=== PATIENT | female | born 1960 | race Caucasian/White ===

== ENCOUNTER → 2019-04-24 | Outpatient (REF) | payer BC | LOC: M LAB REF 12:52 | PROVIDERS: ATTEND Family Medicine | DX: Z12.4 Encounter for screening for malignant neoplasm of cervix (principal) | CPT/HCPCS: 87624; G0123 ==

== ENCOUNTER → 2025-03-02 | Outpatient (CLI) | payer BC ==
[~2025-03-02] MED LIST: ANAS1TAB2 PO; CALC600T27 PO; DULA3PEN; FARX1TAB3; LANTINJ4; LIDO1PAD; LISI5TAB11; METF-415; ONDA-83 PO; ROSU10TA61
== END ==
LOC: M ONCR 07:47
PROVIDERS: ATTEND General Practice
DX: D05.11 Intraductal carcinoma in situ of right breast (principal); Z17.0 Estrogen receptor positive status [ER+]; Z17.21 Progesterone receptor positive status; R11.0 Nausea; Z98.890 Other specified postprocedural states; Z79.4 Long term (current) use of insulin; Z79.84 Long term (current) use of oral hypoglycemic drugs; Z79.899 Other long term (current) drug therapy; Z79.811 Long term (current) use of aromatase inhibitors; Z90.49 Acquired absence of other specified parts of digestive tract; Z80.3 Family history of malignant neoplasm of breast; Z87.891 Personal history of nicotine dependence

== ENCOUNTER 2025-03-08 07:57 | Outpatient (RCR) | payer BC ==
[~2025-03-08 07:57] MED LIST changes: -ROSU10TA61; +ROSU10TA90
[2025-03-19] MEDS ORDERED: OXYC-1 PO (18:49)
== END 2025-03-19 ==
LOC: M ONCR 07:57
PROVIDERS: ATTEND General Practice
DX: Z51.0 Encounter for antineoplastic radiation therapy (principal); D05.11 Intraductal carcinoma in situ of right breast

== ENCOUNTER 2025-03-19 11:39 | Emergency (ER) | payer BC ==
[~2025-03-19] VITALS: Ht 157.5 cm; Wt 61.4 kg
[2025-03-19 12:35] LABS: BASO # 0.0 10^3/uL (0.0-0.2); BASO % 0.2 % (0.0-1.0); EOS # 0.0 10^3/uL (0.0-0.5); EOS % 0.2 % (0.0-3.0); LYMPH # 0.3 10^3/uL (1.5-5.0); LYMPH % 5.5 % (24.0-44.0); MONO # 0.2 10^3/uL (0.0-0.8); MONO % 3.6 % (2.0-8.0); NEUTROPHILS # 5.6 10^3/uL (1.5-8.5); NEUTROPHILS % 90.2 % (36.0-66.0); PLATELET COUNT, AUTOMATED 169 10^3/uL (150-450)
[2025-03-19 12:55] LABS: INR 0.9
[2025-03-19] MEDS: ACETAMINOPHEN 325 MG TAB PO ONE (12:56)
[2025-03-19] MEDS: NS (Normal Saline) 0.9% 1,000 ML IV ONE (12:56)
[2025-03-19 13:04] LABS: CK-MB VALUE MASS < 1.0 NG/ML (<3.6)
[2025-03-19 13:06] LABS: CPK CREATINE PHOSPHOKINASE 49 U/L (34-145)
[2025-03-19 13:08] LABS: ALT/SGPT 17 U/L (7.0-40); AST/SGOT 19 U/L (<34); CALCIUM LEVEL 9.1 MG/DL (8.3-10.6); CARBON DIOXIDE LEVEL 24 MMOL/L (20-31); CHLORIDE LEVEL 106 MMOL/L (98-107); CREATININE FOR GFR 0.60 MG/DL (0.55-1.30); GLOMERULAR FILTRATION RATE > 90.0 (>45); MAGNESIUM LEVEL 1.6 MG/DL (1.8-2.4); POTASSIUM SERUM 3.9 MMOL/L (3.5-5.1); SODIUM LEVEL 142 MMOL/L (136-145)
[2025-03-19] MEDS ORDERED: ISOVUE-370 76% 100 ML VIAL As Ordered ONE (13:16)
[2025-03-19] MEDS: MORPHINE 2 MG/ML 1 ML VIAL IV ONE (13:45)
[2025-03-19] MEDS: ONDANSETRON 4MG/2ML VIAL IV ONE (14:35)
[2025-03-19 15:05] LABS: KETONE, URINE AUTO RFX 1+ mg/dL (NEGATIVE); LEUKOCYTE ESTERASE UR AUTO RFX NEGATIVE (NEGATIVE); MUCUS, URINE RFX SMALL (NEGATIVE); NITRITE, URINE AUTO RFX NEGATIVE (NEGATIVE); RBC, URINE AUTO RFX 1 /HPF (0-3); SQUAM EPITHELIAL CELL UR AURFX 0 /HPF (0-6); WBC, URINE AUTO RFX 0 /HPF (0-3)
[2025-03-19] MEDS: MAG SULF 1GM/100ML (MAG RUN) 1 GM in IV 1 EA IV ONE (15:32)
[2025-03-19] MEDS: FAMOTIDINE 20 MG/2 ML VIAL IVP ONE (16:37)
[2025-03-19 18:45] VITALS: BP 122/66; O2SAT 96
[2025-03-19] MEDS ORDERED: OXYC-1 PO (18:49)
[2025-03-19 18:50] VITALS: TEMP 98.6
== END 2025-03-19 19:06 | disposition home or self-care (01) ==
LOC: M ED 11:39
DX: R07.89 Other chest pain (principal); I10 Essential (primary) hypertension; E78.5 Hyperlipidemia, unspecified; E11.9 Type 2 diabetes mellitus without complications; Z87.891 Personal history of nicotine dependence; Z79.84 Long term (current) use of oral hypoglycemic drugs; Z79.899 Other long term (current) drug therapy
CPT/HCPCS: 71045; 71275; 80048; 80076; 81001; 82330; 82550; 82553; 83605; 83690; 83735; 84145; 84484; 85025; 85610; 87040; 87486; 87581; 87633; 87798; 93005; 93041; 94760; 96361; 96365; 96366; 96375; 99285; J1100; J1308; J2405; J3475; Q9967

== ENCOUNTER 2025-03-25 05:54 | Emergency (ER) | payer BC ==
[~2025-03-25] VITALS: Ht 157.5 cm; Wt 60.9 kg
[~2025-03-25 05:54] MED LIST changes: +OXYC-1 PO
[2025-03-25 05:56] VITALS: BP 142/84; TEMP 97.2; O2SAT 98
[2025-03-25 07:06] LABS: BASO # 0.0 10^3/uL (0.0-0.2); BASO % 0.3 % (0.0-1.0); EOS # 0.0 10^3/uL (0.0-0.5); EOS % 0.3 % (0.0-3.0); LYMPH # 1.0 10^3/uL (1.5-5.0); LYMPH % 14.3 % (24.0-44.0); MONO # 0.5 10^3/uL (0.0-0.8); MONO % 7.1 % (2.0-8.0); NEUTROPHILS # 5.2 10^3/uL (1.5-8.5); NEUTROPHILS % 77.8 % (36.0-66.0); PLATELET COUNT, AUTOMATED 214 10^3/uL (150-450)
[2025-03-25 07:34] LABS: ALT/SGPT 21.0 U/L (7.0-40); AST/SGOT 21.0 U/L (<34)
[2025-03-25] MEDS ORDERED: PHEN26CR TOP (08:33)
[2025-03-25] MEDS ORDERED: MIRA3350 PO (08:34)
[2025-03-25] MEDS: MAGNESIUM CITRATE 300 ML BTL PO ONE (08:42)
== END 2025-03-25 08:55 | disposition home or self-care (01) ==
LOC: M ED 05:54
DX: K59.00 Constipation, unspecified (principal); E11.9 Type 2 diabetes mellitus without complications; I10 Essential (primary) hypertension; E78.5 Hyperlipidemia, unspecified; Z85.3 Personal history of malignant neoplasm of breast; Z79.4 Long term (current) use of insulin; Z79.899 Other long term (current) drug therapy

== ENCOUNTER 2025-03-26 08:53 | Outpatient (RCR) | payer BC ==
[~2025-03-26 08:53] MED LIST changes: +MIRA3350 PO; +PHEN26CR TOP
[2025-03-27] MEDS ORDERED: RA M1SOL2 PO (11:55)
== END 2025-04-18 ==
LOC: M ONCR 08:53
PROVIDERS: ATTEND General Practice
DX: Z51.0 Encounter for antineoplastic radiation therapy (principal); D05.11 Intraductal carcinoma in situ of right breast

== ENCOUNTER 2025-03-26 16:56 | Emergency (ER) | payer BC ==
[~2025-03-26] VITALS: Ht 165.1 cm; Wt 60.5 kg
[2025-03-27 00:46] LABS: BASO # 0.0 10^3/uL (0.0-0.2); BASO % 0.6 % (0.0-1.0); EOS # 0.1 10^3/uL (0.0-0.5); EOS % 2.1 % (0.0-3.0); LYMPH # 1.3 10^3/uL (1.5-5.0); LYMPH % 27.4 % (24.0-44.0); MONO # 0.6 10^3/uL (0.0-0.8); MONO % 13.4 % (2.0-8.0); NEUTROPHILS # 2.6 10^3/uL (1.5-8.5); NEUTROPHILS % 56.3 % (36.0-66.0); PLATELET COUNT, AUTOMATED 262 10^3/uL (150-450)
[2025-03-27 01:17] LABS: CK-MB VALUE MASS < 1.0 NG/ML (<3.6)
[2025-03-27 01:19] LABS: ALT/SGPT 18 U/L (7.0-40); AST/SGOT 21 U/L (<34); CALCIUM LEVEL 8.2 MG/DL (8.3-10.6); CARBON DIOXIDE LEVEL 23 MMOL/L (20-31); CHLORIDE LEVEL 105 MMOL/L (98-107); CPK CREATINE PHOSPHOKINASE 40 U/L (34-145); CREATININE FOR GFR 0.51 MG/DL (0.55-1.30); GLOMERULAR FILTRATION RATE > 90.0 (>45); POTASSIUM SERUM 4.5 MMOL/L (3.5-5.1); SODIUM LEVEL 139 MMOL/L (136-145)
[2025-03-27 01:26] LABS: INR 1.01
[2025-03-27 02:58] LABS: KETONE, URINE AUTO RFX 2+ mg/dL (NEGATIVE); LEUKOCYTE ESTERASE UR AUTO RFX NEGATIVE (NEGATIVE); MUCUS, URINE RFX SMALL (NEGATIVE); NITRITE, URINE AUTO RFX NEGATIVE (NEGATIVE); RBC, URINE AUTO RFX 0 /HPF (0-3); SQUAM EPITHELIAL CELL UR AURFX 3 /HPF (0-6); WBC, URINE AUTO RFX 3 /HPF (0-3)
[2025-03-27] MEDS ORDERED: FLEET ENEMA PR PRN (04:00)
[2025-03-27] MEDS: FLEET ENEMA PR ONE (04:16)
[2025-03-27] MEDS: ONDANSETRON 4MG/2ML VIAL IV ONE (04:16)
[2025-03-27] MEDS: NS (Normal Saline) 0.9% 1,000 ML IV ONE (04:17)
[2025-03-27] MEDS ORDERED: RA M1SOL2 PO (11:55)
[2025-03-27 12:45] VITALS: BP 124/65; TEMP 98; O2SAT 96
== END 2025-03-27 13:03 | disposition home or self-care (01) ==
LOC: M ED 16:56
DX: K59.00 Constipation, unspecified (principal); N20.0 Calculus of kidney; E11.9 Type 2 diabetes mellitus without complications; I10 Essential (primary) hypertension; E78.5 Hyperlipidemia, unspecified; Z85.3 Personal history of malignant neoplasm of breast; Z96.651 Presence of right artificial knee joint; Z79.4 Long term (current) use of insulin; Z79.899 Other long term (current) drug therapy
CPT/HCPCS: 71045; 74018; 74176; 80048; 80076; 81001; 82550; 82553; 83605; 83690; 84484; 85025; 85610; 85730; 86850; 86900; 86901; 93041; 96374; 99285; J2405